=== PATIENT | female | born 1940 | race African-American/Black ===

== ENCOUNTER 2017-12-24 17:02 | Emergency (ER) | payer MEDICARE ==
[~2017-12-24] VITALS: Ht 175.3 cm; Wt 82.7 kg
[~2017-12-24 17:02] MED LIST: AMLO1CAP2 PO; ATEN50TA PO; HCTZ PO; SIMV20TA6 PO
[2017-12-24] MEDS ORDERED: AMLO1CAP13 PO (19:44)
[2017-12-24] MEDS ORDERED: ATOR40TA28 PO (19:44)
[2017-12-24] MEDS ORDERED: CHOL50004 PO (19:44)
[2017-12-24] MEDS ORDERED: SODIUM CHLORIDE 0.9% 2,000 ML IV ONE (21:15)
[2017-12-24 21:45] LABS: APPEARANCE,URINE CLOUDY (CLEAR); GLUCOSE, URINE (UA) NEGATIVE (NEGATIVE); KETONES,URINE 15 mg/dL (NEGATIVE); LEUKOCYTE ESTERASE ,URINE MODERATE (NEGATIVE); NITRATE,URINE NEGATIVE (NEGATIVE); OCCULT BLOOD,URINE NEGATIVE (NEGATIVE); PROTEIN,URINE TRACE (NEGATIVE)
[2017-12-24 21:46] LABS: BASOPHILS % (AUTO) 0.4 % (0.0-2.0); EOSINOPHILS % (AUTO) 0.3 % (1.0-6.0); HEMATOCRIT 42.6 % (36-46); HEMOGLOBIN 14.2 g/dL (12.0-16.0); LYMPHOCYTES # (AUTO) 2.8 K/uL (1.0-4.8); MEAN CORPUSCULAR HEMOGLOBIN 32.6 pg (26.0-34.0); MEAN CORPUSCULAR HGB CONC 33.4 G/dL (31.0-37.0); MEAN CORPUSCULAR VOLUME 98 fL (80-100); MONOCYTES % (AUTO) 8.5 % (2.0-9.0); NEUTROPHILS # (AUTO) 7.7 K/uL (1.8-7.7); NEUTROPHILS % (AUTO) 66.8 % (40.0-70.0); PLATELET COUNT (AUTO) 184 K/uL (150-450); RED BLOOD CELL COUNT(AUTO) 4.36 MIL/uL (4.00-5.20); RED CELL DISTRIBUTION WIDTH 13.7 % (11.5-14.5)
[2017-12-24 22:01] LABS: BILIRUBIN,URINE PRELIM. POSITIVE (NEGATIVE)
[2017-12-24 22:04] LABS: BACTERIA,URINE Moderate /HPF (None Seen)
[2017-12-24 22:05] LABS: ALANINE AMINOTRANSFERASE 16 U/L (12-78); ALBUMIN 3.1 g/dL (3.4-5.0); ALKALINE PHOSPHATASE 58 U/L (46-116); ANION GAP 14 mmol/L (8-16); ASPARTATE AMINOTRANSFERASE 19 U/L (15-37); BILIRUBIN,TOTAL 1.2 mg/dL (0.1-1.0); CALCIUM, TOTAL 9.4 mg/dL (8.8-10.5); CARBON DIOXIDE 27 mmol/L (22-29); CHLORIDE 100 mmol/L (98-107); GLUCOSE,RANDOM 93 mg/dL (70-110); LIPASE 100 U/L (73-393); SODIUM SERUM 141 mmol/L (136-145); TOTAL PROTEIN, SERUM 6.5 g/dL (6.4-8.2); UREA NITROGEN, BLOOD 21 mg/dL (7-18)
[2017-12-24 22:07] LABS: LACTIC ACID 1.2 mmol/L (0.4-2.0)
[2017-12-24 22:08] LABS: GLOMERULAR FILTR. RATE CALC > 60 mL/min (>60); POTASSIUM 2.9 mmol/L (3.5-5.1)
[2017-12-24 22:10] LABS: SQUAMOUS EPITHELIAL CELL,UR Many /LPF (None Seen)
[2017-12-24 22:12] LABS: RBC,URINE 0-2 /HPF (0-2)
[2017-12-24] MEDS ORDERED: POTASSIUM CHLORIDE 10% 40 MEQ/30 ML LIQUID UDCUP PO ONE (22:45)
[2017-12-24] MEDS ORDERED: MetroNIDAZOLE 250 MG TABLET PO ONE (23:45)
[2017-12-25 00:45] VITALS: BP 174/103
== END 2017-12-25 00:49 | disposition home or self-care (01) ==
LOC: EMS 17:03
DX: E86.0 Dehydration (principal); E87.6 Hypokalemia; N39.0 Urinary tract infection, site not specified; A59.9 Trichomoniasis, unspecified; E78.00 Pure hypercholesterolemia, unspecified; I10 Essential (primary) hypertension; F17.210 Nicotine dependence, cigarettes, uncomplicated; Z90.710 Acquired absence of both cervix and uterus; Z88.1 Allergy status to other antibiotic agents; Z79.899 Other long term (current) drug therapy
CPT/HCPCS: 36415; 51701; 70450; 71045; 80053; 81001; 83605; 83690; 84484; 85025; 87086; 93005; 96360; 96361; 99285; 99406; J7030